=== PATIENT | male | born 1960 | race Caucasian/White ===

== ENCOUNTER 2018-07-26 05:35 | Inpatient (IN) ==
[2018-07-20 13:29] LABS: Appearance,Urine CLEAR; Bilirubin,Urine NEG (NEG); Color,Urine YELLOW; Glucose,Urine (UA) NEGATIVE (NEG); Leukocyte Esterase,Urine NEG /uL (NEG); Protein,Urine NEG (NEG); Specific Gravity,Urine 1.027 (1.000-1.035); Urine Blood NEG mg/dL (<0.03); Urobilinogen,Urine NEG (NEG)
[2018-07-20 14:06] LABS: Basophils # (Auto) 0 K/mcL (0.0-0.3); Basophils % (Auto) 0.6 % (0.0-2.0); Eosinophils # (Auto) 0.2 K/mcL (0.0-0.7); Eosinophils % (Auto) 2.5 % (0.0-7.0); Lymphocytes % (Auto) 29.3 % (15.5-49.0); Mean Cell Volume 87.1 fL (80.0-100.0); Mean Corpuscular HGB Conc 32.6 g/dL (31.0-36.0); Monocytes # (Auto) 0.9 K/mcL (0.1-0.9); Monocytes % (Auto) 13.6 % (1.0-12.0); Platelet Count 231 K/mcL (140-440); Red Cell Distribution Width 12.5 % (11.5-14.5)
[2018-07-20 14:16] LABS: Blood Urea Nitrogen 14 mg/dl (6-20)
[2018-07-26] MEDS ORDERED: 0.9 % SODIUM CHLORIDE 9 ML, KETOROLAC 30 MG, ROPIVACAINE HCL/PF 49.5 ML, EPINEPHrine 0.... IJ SCH ×2 (06:45→07:00)
[2018-07-26] MEDS ORDERED: ceFAZolin 1 GM VIAL IV SCH ×2 (06:45→07:00)
[2018-07-26] MEDS ORDERED: PROPOFOL 200 MG/20 ML VIAL IV ONE (08:00)
[2018-07-26] MEDS ORDERED: ROPIVACAINE HCL/PF 20 ML VIAL IJ ONE (08:00)
[2018-07-26] MEDS ORDERED: fentaNYL 100 MCG/2 ML VIAL IV ONE (08:00)
[2018-07-26] MEDS ORDERED: SUCCINYLCHOLINE 20 MG/ML ML IV ONE (08:00)
[2018-07-26] MEDS ORDERED: TRANEXAMIC ACID 1,000 MG/10 ML VIAL IV ONE (08:00)
[2018-07-26] MEDS ORDERED: DEXAMETHASONE 10 MG/ML VIAL IV ONE (08:00)
[2018-07-26] MEDS ORDERED: ONDANSETRON 4 MG/2 ML VIAL IV ONE (08:00)
[2018-07-26] MEDS ORDERED: LIDOCAINE HCL/PF 100 MG/5 ML SYRINGE IV ONE (08:00)
[2018-07-26] MEDS ORDERED: HYDROmorphone 2 MG/ML VIAL IV ONE (08:00)
[2018-07-26] MEDS ORDERED: MIDAZOLAM 5 MG/5 ML VIAL IV ONE (08:00)
[2018-07-26] MEDS ORDERED: KETAMINE 100 MG/ML ML IV ONE (08:00)
[2018-07-26] MEDS ORDERED: GENTAMICIN SULFATE 800 MG/20 ML VIAL IR ONE (08:17)
[2018-07-26] MEDS ORDERED: diphenhydrAMINE 50 MG/ML VIAL IV PRN (09:12)
[2018-07-26] MEDS ORDERED: ONDANSETRON 4 MG/2 ML VIAL IV PRN ×2 (09:12→09:50)
[2018-07-26] MEDS ORDERED: FLUMAZENIL 0.1 MG/ML ML IV PRN (09:12)
[2018-07-26] MEDS ORDERED: IPRATROPIUM/ALBUTEROL 3 ML AMPUL.NEB NEB PRN (09:12)
[2018-07-26] MEDS ORDERED: PROMETHAZINE 25 MG/ML VIAL IV PRN (09:12)
[2018-07-26] MEDS ORDERED: LACTATED RINGERS 250 ML IV PRN (09:12)
[2018-07-26] MEDS ORDERED: MEPERIDINE 25 MG/ML SYRINGE IV PRN (09:12)
[2018-07-26] MEDS ORDERED: NALOXONE HCL 0.4 MG/ML VIAL IV PRN (09:12)
[2018-07-26] MEDS ORDERED: HYDROmorphone 2 MG/ML VIAL IV PRN (09:12)
[2018-07-26] MEDS ORDERED: BENZOCAINE/MENTHOL 1 LOZENGE PO PRN ×2 (09:12→09:50)
[2018-07-26] MEDS ORDERED: LACTATED RINGERS 1,000 ML IV SCH (09:15)
[2018-07-26] MEDS ORDERED: TRANEXAMIC ACID 1,000 MG/10 ML VIAL IV SCH (09:50)
[2018-07-26] MEDS ORDERED: POLYETHYLENE GLYCOL 3350 17 GM PACKET PO PRN (09:50)
[2018-07-26] MEDS ORDERED: FLEETS ADULT ENEMA PR PRN (09:50)
[2018-07-26] MEDS ORDERED: MAGNESIUM HYDROXIDE 30 ML ORAL.SUSP PO PRN (09:50)
[2018-07-26] MEDS ORDERED: BISACODYL 10 MG SUPP.RECT PR PRN (09:50)
--- NOTE | 2018-07-26 10:04 | Orthopedic Procedure Note ---
Date of procedure: Note initiated : 07/26/18 at 10:03 am Service Date, if different from initiated Date: [] Pre-op diagnosis: DJD left knee Post-op diagnosis: same Procedure: SUZANNE TKR, triathlon system Grafts/Implants: Triathlon Knee Anesthesia: GETA Surgeon: Facundo Watkins Film Historian: Darshan Gardner Estimated blood loss: 100 Pathology: none sent Description of procedure: TKR Condition: stable Disposition: PACU
[2018-07-26] MEDS: fentaNYL 100 MCG/2 ML VIAL IV PRN ×4 (10:33→10:47)
--- NOTE | 2018-07-26 11:04 | XRay Report ---
HISTORY: Postop knee replacement FINDINGS: there is a well positioned total knee prosthesis. No fracture or abnormal soft tissue calcification are present. IMPRESSION: Well-positioned left knee prosthesis Interpreted and Authenticated by: Jorge Licea 07/26/18
--- NOTE | 2018-07-26 11:10 | Operative Note ---
DATE OF OPERATION: 07/26/2018 PREOPERATIVE DIAGNOSIS: Degenerative joint disease of the left knee. POSTOPERATIVE DIAGNOSIS: Degenerative joint disease of the left knee. OPERATION: Robot-assisted left total knee replacement. SURGEON: Facundo Watkins MD COMPANY TRUCK DRIVER: Darshan Gardner PA-C ANESTHESIA: General done by Feliberto Bain CRNA. ESTIMATED BLOOD LOSS: 100 mL TOURNIQUET TIME: 75 minutes. SUMMARY OF PROCEDURE: General anesthesia was attained. The left leg was prepped and draped. A midline incision was made from the quadriceps to the tibial tubercle. This was taken down sharply to the quadriceps and medial retinaculum. The quadriceps and medial retinaculum was split. The anterior menisci were resected. The ACL was resected. The soft tissue was elevated off the anterior femur. Two small stab incisions were made in the femur and pins placed into the femur to hold the array. This was also done in the tibia. These were unicortical pins. Checkpoints were placed, one in the femur, one in the tibia as well. The hip center was located using the robotic technology. The patella was mobilized laterally. We then did the checkpoints on the femur. The checkpoints were also then done on the tibia. A tibial cut was then made with robotic guidance. The rotation was adjusted on the tibia and the tibia was then reamed and broached. The robot was then used to make the posterior bevel and anterior cuts as well as the distal cuts on the femur. The femur sized to a 5. The tibia sized to a 4. The patella was next sized. It was 23 mm in depth. We did a 10 mm resection down to 13 mm. Patella sized to a 35. Trials were placed. The no-touch test showed a lateral release was not needed. We got excellent stability throughout the range of motion. This was confirmed on the robot. The bone surfaces were irrigated and then dried using the Carbiturbo tool. The components were next cemented in. We used antibiotic impregnated cement. The cement was cured with the knee in full extension. Excess cement was removed. The no-touch test was repeated after implantation of the knee cap and no lateral release was needed. The quadriceps and medial retinaculum were closed with buried #2 FiberWire and then a running locking 0 Maxon. The subcutaneous tissue was closed with buried 2-0 Monocryl and the skin was closed with kassandra. During the procedure, we injected the knee throughout with a multimodal solution for postoperative analgesia. The sponge and needle count was correct. The patient tolerated the procedure well and was taken to the recovery room in stable condition. TJF:nir Job ID: [id number] Doc ID: [id number] Facundo Watkins MD
[2018-07-26] MEDS: METHOCARBAMOL 1,000 MG/10 ML VIAL IV PRN ×2 (12:06→20:00)
[2018-07-26] MEDS: HYDROcodone/APAP 10/325MG TABLET PO PRN ×3 (12:19→21:18)
[2018-07-26] MEDS ORDERED: oxyCODONE/APAP 10/325MG TABLET PO PRN (12:58)
[2018-07-26] MEDS: GABAPENTIN 300 MG CAPSULE PO PRN ×2 (13:49→21:18)
[2018-07-26] MEDS: LORazepam 1 MG TABLET PO PRN ×2 (13:49→23:47)
[2018-07-26] MEDS: 0.9 % SODIUM CHLORIDE 1,000 ML IV SCH ×2 (13:51→22:26)
[2018-07-26] MEDS: 0.9 % SODIUM CHLORIDE 10 ML SYRINGE IV SCH ×2 (15:44→22:31)
[2018-07-26] MEDS: ceFAZolin 1 GM VIAL IV SCH ×2 (16:44→23:41)
--- NOTE | 2018-07-26 19:24 | Internal Medicine Consult Note ---
Medical - CN: HPI - Data of Consult Consult date: 07/26/18 Requesting physician: Facundo Watkins Primary Care Provider: Facundo Gupta - Consult Narrative Reason for consult: Evaluation of medications History of present illness: Mr. Shafer is a 58 year old M with a history of bipolar 1 disorder, anxiety, COPD, chronic pancreatitis and chronic pain, tardive dyskinesia who underwent total knee arthroplasty today by Dr. Watkins. I been asked to evaluate the patient's medication regimen, as he has had some recent falls and is a fall risk after surgery. The patient is on significant number of medications including antiepileptics, mood stabilizing medications, medications for tardive dyskinesia as well as chronic pain. He also has prescription for 2 mg of lorazepam 3 times a day as needed for anxiety. He states he has not used that for several weeks. Last week, the patient had a fall. He describes that he "got shaky" then his "knees locked up" and he fell over backwards. He remembers hitting the ground, he may have had some loss of consciousness and there. He's had about 3 spells of this. This seemed to coincide with the beginning of lithium therapy, though he been on it for a month on the first spell happened. He was taken off the lithium, resumed on lower dose, which seems to be when this most recent event occurred. Though history is a bit challenging given the patient's underlying dental illness. These events occurred after he been standing up for a while, not just after having arisen. He differentiates these from other "shaky spells" which seemed to improve after food, and seemed to occur after consuming too much caffeine. His medications are managed by his individual pension consultant. His individual pension consultant, her and children live with him. His meds are laid out in a box. He does occasionally forget to take his medications however. However he does not dispense medications from his pill bottles, he uses his pillbox. Patient currently complains of some anxiety, knee and hip pain. 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 Denies any fevers or chills, dyspnea, chest pain, nausea or vomiting. He has some chronic vision changes, requiring reading glasses, these are stable. CC: Facundo Watkins All systems: reviewed and no additional remarkable complaints except as stated Medical - CN: PMH Medical history: Bipolar 1 disorder Generalized anxiety disorder Tardive dyskinesia secondary to neuroleptics Dementia Depression Chronic pancreatitis History of alcohol abuse COPD Cirrhosis, hepatitis C Hypercholesterolemia Gastroesophageal reflux disease History of Schatzki's ring, status post dilatations Congenital left renal hypoplasia Right renal hyperplasia Surgical history: History of back surgery History shoulder surgery History of cutaneous tumor removal History of total knee arthroplasty Pertinent family history: Patient's father of myocardial infarction. Patient's mother has heart disease, rheumatoid arthritis, diabetes, cancer. A sister has bipolar. Social history: Patient has a caregiver who along with her family lives with the patient. He smokes about half pack per day. He has not drink alcohol. Medical - CN: Meds Home Medications Medication Instructions Recorded Confirmed Type HYDROcodone/APAP 10/325MG [[place] 1 tab PO Q4HP PRN 09/28/15 07/26/18 History 10/325Mg] Montelukast Sodium [Singulair] 10 mg PO DAILY 09/28/15 07/26/18 History Venlafaxine HCl [Venlafaxine HCl 150 mg PO DAILY 09/28/15 07/26/18 History ER] Donepezil [Aricept] 10 mg PO DAILY 01/15/18 07/26/18 History Fluticasone Hfa 110Mcg [Flovent 1 - 2 puff INH DAILY 01/15/18 07/26/18 History Hfa 110Mcg] LORazepam [Ativan] 2 mg PO TIDP PRN 01/15/18 07/26/18 History hydrOXYzine [Atarax] 50 mg PO DAILY 01/15/18 07/26/18 History Amantadine HCl [Amantadine] 100 mg PO HS 07/20/18 07/26/18 History OXcarbazepine [Oxcarbazepine] 900 mg PO BID 07/20/18 07/26/18 History Prazosin [Minipress] 1 mg PO HS 07/20/18 07/26/18 History Propranolol [Inderal] 10 mg PO BID 07/20/18 07/26/18 History RX: Furosemide [Lasix] 20 mg PO DAILY 07/20/18 07/26/18 History RX: Gabapentin [Neurontin] 300 mg PO TIDP PRN 07/20/18 07/26/18 History RX: [employer] Carbonate 150 mg PO HS 07/20/18 07/26/18 History RX: Nortriptyline HCl [Pamelor] 50 mg PO DAILY 07/20/18 07/26/18 History RX: Omeprazole [Prilosec] 40 mg PO ACB 07/20/18 07/26/18 History RX: amitriptyline 50 mg tablet 150 mg PO HS 07/20/18 07/26/18 History Triamcinolone Cream 0.1% 15G 1 dose TOPICAL PRN PRN 07/20/18 07/26/18 History [Kenalog Crm 0.1%] buPROPion HCL [Wellbutrin Xl] 150 mg PO DAILY 07/20/18 07/26/18 History Aspirin [Ecotrin] 81 mg PO BID 30 Days tab.ec 07/27/18 Rx RX: morphine 15 mg PO Q4HP PRN #50 tab 07/27/18 Rx Allergies Allergy/AdvReac Type Severity Reaction Status Date / Time No Known Drug Allergies Allergy Verified 03/28/18 10:53 Medical - CN: Exam - Constitutional Vitals: Temp Pulse Resp BP Pulse Ox 97.5 F 65 16 145/61 93 07/26/18 16:16 07/26/18 16:16 07/26/18 16:16 07/26/18 16:16 07/26/18 16:16 Exam: GENERAL: Alert, oriented, appears mildly anxious. Cooperative, appears stated age. HEENT: Atraumatic. PERRL, conjunctiva clear, no scleral icterus. Hearing grossly intact. Oropharynx with dry mucous membranes, no lip or gum lesions, no pharyngeal erythema or exudate. Tongue midline, palate rises symmetrically. NECK: Thick, supple without meningismus, no thyromegaly RESPIRATORY: Breath sounds clear bilaterally without wheezes or rhonchi. Respiratory effort is unlabored. CARDIOVASCULAR: Regular rate and rhythm, heart tones mildly distant, no murmur gallop or rub. No peripheral edema. Carotid pulses 2+ without bruit. GI: Abdomen obese, soft, mild epigastric tenderness without guarding or rebound. Bowel sounds are present. Liver margin and spleen are not palpable. MUSCULOSKELETAL: Left knee has surgical dressing and cooling pack in place. SKIN: Intact, warm, dry. Multiple tattoos. Skin turgor normal. NEUROLOGIC: Cranial nerves II through XII grossly intact. Muscle mass normal. Strength 5/5 in the upper and lower extremities (strength testing limited in left lower extremity due to postop stay). Sensation intact to light touch bilaterally. Deep tendon reflexes 1+ at the biceps. PSYCHIATRIC: Alert, oriented x3, anxious mood, mildly decreased insight. Speech nonpressured, linear thought processes. Medical - CN: Result - Labs CBC & Chem 7: 07/27/18 04:00 07/20/18 11:24 - EKG Data EKG shows normal: sinus rhythm (rate is 66, nonspecific T-wave flattening) Medical - CN: A/P - Narrative A/P Narrative: 58-year-old male with bipolar disorder, anxiety, tardive dyskinesia, and notation of dementia in the chart with polypharmacy. Recent fall. Recent fall. Unclear etiology. The patient had been upright for a while when it occurred, which is less usual for orthostasis, which usually occurs shortly after arising upright. May be related to tardive dyskinesia and loss of balance. Interestingly, he seems to attribute it to lithium therapy. Otherwise he's had no recent change in drugs. Recommendation: -Check lithium level (ordered) -Check orthostatic vital signs when working with physical therapy Polypharmacy. Medication list reviewed. He is on significant doses of several medications, however they all appear needed for their indication. He appears to have fairly significant mental health issues, would be hesitant to adjust doses. Many of these medications would need tapered. Would fear unmasking bipolar symptoms. Lorazepam at 2 mg 3 times a day as a significant dose, he uses it as needed has not used it for a few weeks. Would try to avoid this in the hospital. No evidence of drug related QT changes on EKG. Recommendation: -Not provide benzodiazepines while hospitalized and receiving opioids -If needed, low-dose clonazepam may be a better choice for acute anxiety -Will check lithium level as noted above Bipolar disorder. Appears stable. Recommendation: Continue home regimen, as discussed above Anxiety disorder. Mood is anxious currently. As noted above would try to avoid benzodiazepines, if needed, clonazepam may be a better choice. Chronic pancreatitis. Stable. Cirrhosis with hepatitis C. Stable. Will follow.
[2018-07-26] MEDS ORDERED: LITHIUM CARBONATE 150 MG CAPSULE PO SCH (21:00)
[2018-07-26] MEDS ORDERED: AMANTADINE HCL 100 MG CAPSULE PO SCH (21:00)
[2018-07-26] MEDS ORDERED: AMITRIPTYLINE 25 MG TABLET PO SCH (21:00)
[2018-07-26] MEDS ORDERED: TEMAZEPAM 15 MG CAPSULE PO PRN (21:00)
[2018-07-26] MEDS ORDERED: SENNOSIDES 1 TABLET PO SCH (21:00)
[2018-07-26] MEDS ORDERED: PRAZOSIN 1 MG CAPSULE PO SCH (21:00)
[2018-07-26] MEDS: DOCUSATE SODIUM 100 MG CAPSULE PO SCH (22:20)
[2018-07-26] MEDS: PROPRANOLOL 10 MG TABLET PO SCH (22:20)
[2018-07-26] MEDS: ASPIRIN 81 MG TAB.CHEW PO SCH (22:21)
[2018-07-27] MEDS: HYDROcodone/APAP 10/325MG TABLET PO PRN ×2 (03:04→06:46)
[2018-07-27] MEDS: 0.9 % SODIUM CHLORIDE 10 ML SYRINGE IV SCH (05:41)
[2018-07-27] MEDS ORDERED: OMEPRAZOLE 20 MG CAPSULE PO SCH (07:30)
[2018-07-27] MEDS ORDERED: morphine 15 MG TABLET PO PRN (08:12)
--- NOTE | 2018-07-27 08:16 | Discharge Summary ---
Ortho Discharge - TKA - Patient Instructions Diet: Regular Diet Activity: activity as tolerated Total Knee Protocol: For Total Knee: Start ROM FELICITAS with stationary bike or rocking chair. Work on gaining full extension of knee. Posterior dislocation precautions provided. Hip abductor strengthening and gait training instructions provided. Apply Cryocuff as instructed. Dressing Care: May shower in 2 days - Follow Up Plan Follow Up Appointments: Darshan Gardner PA-C [Physician Mrb Engineer] - 08/08/18 10:40 am Disposition: Home, Self-Care Prognosis: Fair Rehab Potential: Fair I certify that the patient requires SNF services: No Overall status at discharge: patient is back to baseline - Orders For Discharge Prescriptions: morphine 15 mg PO Q4HP PRN #50 tab PRN Reason: Pain Level 3-6
--- NOTE | 2018-07-27 08:25 | Orthopedic Progress Note ---
Subjective Patient information: Note initiated : 07/27/18 at 8:22 am Service Date, if different from initiated Date: [] Patient: Mirza Shafer 58 y/o M admitted on 07/26/18 for Left Robotic Total Knee Arthroplasty. Chief Complaint: [] Principal diagnosis: left knee replacement Interval history: surgery [email or web address] Objective Vital signs: Vital Signs Temp Pulse Resp BP BP Pulse Ox 07/27/18 06:51 98 F 20 97/62 90 07/27/18 04:49 65 19 106/63 93 07/27/18 04:00 98.1 F 70 20 99/59 92 07/26/18 23:49 98.7 F 78 16 101/50 07/26/18 22:30 21 106/59 94 07/26/18 19:30 97.4 F 87 20 104/60 90 07/26/18 19:22 87 20 90 07/26/18 16:16 97.5 F 65 16 145/61 93 07/26/18 11:00 70 16 140/69 100 07/26/18 10:45 97.3 F 66 18 146/88 100 07/26/18 10:30 71 17 156/93 100 07/26/18 10:15 56 L 17 158/92 100 07/26/18 10:10 57 L 14 144/69 94 07/26/18 10:05 97.3 F 60 20 122/80 90 Intake and Output 07/26/18 07/27/18 07/27/18 21:59 05:59 13:59 Intake Total 960 1245 Balance 960 1245 Intake: IV 545 Sodium Chloride 0.9% 1,000 ml @ 545 75 mls/hr IV .[id number] PIETRO Rx#: [id number] Oral 960 700 Other: Meal Dinner Percent of Meal Consumed 100% Feeding Ability Independent Urine Color Bright Yellow Pale Urine Odor Normal Normal # Voids 1 1 Weight 287 lb 11.2 oz Intake & Output: Intake & Output 07/26/18 07/27/18 07/27/18 21:59 05:59 13:59 Intake Total 960 1245 Balance 960 1245 Weight 287 lb 11.2 oz Intake: IV 545 Sodium Chloride 0.9% 1,000 ml @ 545 75 mls/hr IV .[id number] PIETRO Rx#: [id number] Oral 960 700 Other: Meal Dinner Percent of Meal Consumed 100% Feeding Ability Independent Urine Color Bright Yellow Pale Urine Odor Normal Normal # Voids 1 1 Dressing: Yes clean, Yes dry, Yes intact Weight bearing status: full Extremities exam IM: Yes Foot pink and warm, Yes neurovascular intact - Diagnostic Results Knee x-ray: image reviewed (well positioned left TKR) - Labs CBC & BMP: 07/27/18 04:00 07/20/18 11:24 Labs: 07/27/18 07/20/18 04:00 11:24 Hgb 12.3 L 15.1 Hct 36.5 L 46.2 Assessment and Plan (1) Total knee replacement status motivated to go home. Reviewed with pt importance of not smoking, of taking aspirin, and of PT. D/c paon med will be Morphine. Status: Acute
[2018-07-27] MEDS: LORazepam 1 MG TABLET PO PRN (08:46)
[2018-07-27] MEDS: PROPRANOLOL 10 MG TABLET PO SCH (08:47)
[2018-07-27] MEDS: DOCUSATE SODIUM 100 MG CAPSULE PO SCH (08:47)
[2018-07-27] MEDS: ASPIRIN 81 MG TAB.CHEW PO SCH (08:47)
[2018-07-27] MEDS ORDERED: DONEPEZIL 10 MG TABLET PO SCH (09:00)
[2018-07-27] MEDS ORDERED: NORTRIPTYLINE 25 MG CAPSULE PO SCH (09:00)
[2018-07-27] MEDS ORDERED: FUROSEMIDE 20 MG TABLET PO SCH (09:00)
[2018-07-27] MEDS ORDERED: hydrOXYzine 25 MG TABLET PO SCH (09:00)
[2018-07-27] MEDS ORDERED: buPROPion 150 MG TAB.XL.24H PO SCH (09:00)
[2018-07-27] MEDS ORDERED: MONTELUKAST 10 MG TABLET PO SCH (09:00)
[2018-07-27] MEDS ORDERED: FLUTICASONE HFA 110MCG INHALER INH SCH (09:00)
[2018-07-27] MEDS ORDERED: VENLAFAXINE 150 MG CAP.XL.24H PO SCH (09:00)
[2018-07-27] MEDS ORDERED: PNEUMOCOCCAL 23-VAL P-SAC VAC 0.5 ML SYRINGE IM ONE (10:00)
== END 2018-07-27 10:53 | disposition home or self-care (01) | DRG 470 ==
LOC: MEDSUR 05:35
PROVIDERS: ADMIT Orthopaedic Surgery Foot and Ankle Surgery; ATTEND Orthopaedic Surgery Foot and Ankle Surgery